=== PATIENT | male | born 1970 | race American Indian/Alaskan Native ===

== ENCOUNTER 2018-01-30 17:35 | Observation (INO) | payer OTHER ==
--- NOTE | 2018-01-30 17:51 | ED PDOC ---
Arrival/HPI - General Time Seen by Provider: 01/30/18 17:50 Historian: Patient - History of Present Illness Narrative History of Present Illness (Text): 01/30/18 17:51 47 y/o male, pmh including chronic vertigo on and off since 10/2017, nkda, c/o new onset of elevated blood pressure with dizziness at home today. Pt. stated that he has chronic headache and dizziness for couple months, worsening for the headache and dizziness started today, new onset of elevated high blood pressure has been around 150-160 systolic with diastolic 80-90, feels like passing out with elevated BP, no change in vision, no numbness or tingling, no night sweat, no rash, no change in vision, no other medical or psychological complaints. Past Medical History - Provider Review Nursing Documentation Reviewed: Yes Family/Social History - Physician Review Nursing Documentation Reviewed: Yes Family/Social History: Unknown Family HX Allergies/Home Meds Allergies/Adverse Reactions: Allergies No Known Allergies Allergy (Verified 01/30/18 18:00) Home Medications: Home Meds Medication Instructions Recorded Confirmed No Known Home Med 01/30/18 01/30/18 Review of Systems - Review of Systems Constitutional: absent: Fatigue, Fevers Eyes: absent: Vision Changes ENT: absent: Hearing Changes Respiratory: absent: SOB, Cough Cardiovascular: absent: Chest Pain Gastrointestinal: absent: Abdominal Pain, Nausea, Vomiting Skin: absent: Rash, Pruritis Neurological: Headache, Dizziness Psychiatric: absent: Anxiety, Depression Physical Exam Vital Signs Reviewed: Yes Vital Signs Temp Pulse Pulse Resp BP BP Pulse Ox 01/30/18 21:00 60 18 168/94 H 01/30/18 19:49 60 168/94 H 01/30/18 18:31 60 166/104 H 01/30/18 17:55 98.7 F 62 16 163/95 H 100 Temperature: Afebrile Blood Pressure: Hypertensive Pulse: Regular Respiratory Rate: Normal Appearance: Positive for: Well-Appearing, Non-Toxic, Comfortable Pain Distress: None Mental Status: Positive for: Alert and Oriented X 3 - Systems Exam Head: Present: Atraumatic, Normocephalic. No: Tenderness Pupils: Present: PERRL Extroacular Muscles: Present: EOMI Conjunctiva: Present: Normal Mouth: Present: Moist Mucous Membranes Neck: Present: Normal Range of Motion Respiratory/Chest: Present: Clear to Auscultation, Good Air Exchange. No: Respiratory Distress, Accessory Muscle Use Cardiovascular: Present: Regular Rate and Rhythm, Normal S1, S2. No: Murmurs Abdomen: No: Tenderness, Distention, Peritoneal Signs, Rebound, Guarding Back: Present: Normal Inspection Upper Extremity: Present: Normal Inspection. No: Cyanosis, Edema Lower Extremity: Present: Normal Inspection. No: Edema Neurological: Present: GCS=15, CN II-XII Intact, Speech Normal, Motor Func Grossly Intact, Gait Normal, Memory Normal Skin: Present: Warm, Dry, Normal Color. No: Rashes Psychiatric: Present: Alert, Oriented x 3, Normal Insight, Normal Concentration Medical Decision Making ED Course and Treatment: 01/30/18 18:07 -labs -cxr -CT head -ekg -Aspirin 325mg after negative CT head/clonidine 0.1mg po -repeat BP and reassess 01/30/18 19:30 -NIHSS is zero -EKG: Sinus Bradycardia @ 58 BPM, non-specific ST wave changes noted on the lead II/III?aVF/V3/V4, Delta Wave noted on the V3 and V4. -CT Head: No definite acute intracranial abnormality. -Chest xray show no active disease -Labs are non-significant -Troponin 1st set is negative at this time. -I discussed with the patient and family about the abnormality of the EKG with no previous comparison, advised 24 hours observation, they agreed to be admitted for over night observation. -Case/labs/radiology result discussed with Dr. Manzo, he agreed this patient will need observation overnight with possible equalizer operator consult tomorrow. He will put in the admission order. -Hospitalist/medical residence paged for admission 01/30/18 19:45 -I spoke to Dr. Aida Beverly, night house doctor on line csr, discussed about the case/ labs/radiology result, will observe the patient over night. - Lab Interpretations Lab Results: 01/30/18 18:06 01/30/18 18:06 Lab Results 01/30/18 18:06: WBC 6.0, RBC 4.71, Hgb 14.4, Hct 40.3 L, MCV 85.6, MCH 30.6, MCHC 35.7, RDW 13.0, Plt Count 275, MPV 8.9, Gran % 33.5 L, Lymph % (Auto) 56.0 H, Hoke % (Auto) 7.1 H, Eos % (Auto) 3.1, Baso % (Auto) 0.3, Gran # 2.02, Lymph # (Auto) 3.4, Hoke # (Auto) 0.4, Eos # (Auto) 0.2, Baso # (Auto) 0.02 01/30/18 18:06: Sodium 140, Potassium 4.2, Chloride 102, Carbon Dioxide 30, Anion Gap 13, BUN 13, Creatinine 1.2, Est GFR ( Amer) > 60, Est GFR (Non- Af Amer) > 60, Random Glucose 86, Calcium 9.3, Magnesium 1.9, Total Bilirubin 0.6, AST 45, ALT 32, Alkaline Phosphatase 51, Lactate Dehydrogenase 475, Total Creatine Kinase 399 H, CK-MB (CK-2) 5.2 H, CK-MB (CK-2) % 1.3 L, Troponin I < 0.01, Total Protein 7.8, Albumin 3.8, Globulin 3.9, Albumin/Globulin Ratio 1.0 L I have reviewed the lab results: Yes - RAD Interpretation Radiology Orders: 01/30/18 18:25 HEAD W/O CONTRAST [CT] Stat CHEST PORTABLE [RAD] Stat Chest xray: CT head: Brain: Minimal atrophy. No intracranial hemorrhage. No mass. No definite edema. Ventricles: No hydrocephalus. Bones/joints: No acute fracture. Soft tissues: Unremarkable. Sinuses: Scattered minimal mucosal thickening. Mastoid air cells: No mastoid effusion. Orbits: Unremarkable as visualized. IMPRESSION: 1. No definite acute intracranial abnormality. 2. Incidental/non-acute findings are described above. Thank you for allowing us to participate in the care of your patient. Dictated and Authenticated by: Jhonatan Gomez MD 01/30/2018 8:07 PM Eastern Time ([place] & [place]) Grinding Machine Operator Automatic: Radiologist - EKG Interpretation EKG Interpretation (Text): 01/30/18 18:46 EKG: Sinus Bradycardia @ 58 BPM, non-specific ST wave changes noted on the lead II/III?aVF/V3/V4, Delta Wave noted on the V3 and V4. Interpreted by ED Physician: Yes Type: 12 lead EKG Comparison: No previous EKG avail. - Medication Orders Current Medication Orders: Famotidine (Pepcid) 40 mg PO HS BAYRON Hydralazine HCl (Apresoline) 10 mg PO Q6H PRN PRN Reason: Systolic Blood Pressure Sodium Chloride (Sodium Chloride 0.9%) 1,000 mls @ 70 mls/hr IV .[id number] BAYRON Last Admin: 01/30/18 19:50 Dose: 70 mls/hr eMAR Start Stop Document 01/30/18 19:50 VILMA (Rec: 01/30/18 19:51 VILMA [id number]) Intravenous Solution Start Date 01/30/18 Start Time 19:50 Discontinued Medications Aspirin (Aspirin) 325 mg PO STAT STA Stop: 01/30/18 19:25 Last Admin: 01/30/18 20:24 Dose: Clonidine HCl (Catapres) 0.1 mg PO STAT STA Stop: 01/30/18 19:31 Last Admin: 01/30/18 19:49 Dose: 0.1 mg MAR Pulse and Blood Pressure Document 01/30/18 19:49 VILMA (Rec: 01/30/18 19:50 VILMA [id number]) Pulse Pulse Rate (60-90) 60 Blood Pressure Blood Pressure (100/60-150/90) 168/94 Meclizine HCl (Antivert) 50 mg PO STAT STA Stop: 01/30/18 19:25 Last Admin: 01/30/18 19:49 Dose: 50 mg - PA / SUPERVISING BROKER / Resident Statement MD/DO has reviewed & agrees with the documentation as recorded. Disposition/Present on Arrival - Present on Arrival Any Indicators Present on Arrival: No History of DVT/PE: No History of Uncontrolled Diabetes: No Urinary Catheter: No History of Decub. Ulcer: No - Disposition Have Diagnosis and Disposition been Completed?: Yes Diagnosis: Abnormal electrocardiogram [ECG] [EKG], Dizziness, Syncope, near Disposition: HOSPITALIZED Disposition Time: 18:07 Patient Plan: Admission, Observation, Telemetry Patient Problems: Current Active Problems Problem Status Onset Abnormal electrocardiogram [ECG] [EKG] Acute Dizziness Acute Syncope, near Acute Condition: STABLE
[2018-01-30 18:33] LABS: BASO # 0.02 K/mm3 (0.0-2.0); BASO % 0.3 % (0.0-3.0); EOS # 0.2 (0.0-0.7); EOS % 3.1 % (1.5-5.0); GRAN # 2.02 (1.4-6.5); GRAN % 33.5 % (50.0-68.0); HEMOGLOBIN 14.4 g/dL (14.0-18.0); LYMPH # 3.4 (1.2-3.4); MEAN CELL VOLUME 85.6 fl (80.0-105.0); MEAN CORPUSCULAR HEMOGLOBIN 30.6 pg (25.0-35.0); MEAN CORPUSCULAR HGB CONC 35.7 g/dl (31.0-37.0); MEAN PLATELET VOLUME 8.9 fl (7.0-11.0); MONO # 0.4 (0.1-0.6); MONO % 7.1 % (1.0-6.0); RBC 4.71 10^6/uL (3.5-6.1)
[2018-01-30 18:48] LABS: CALCIUM 9.3 mg/dL (8.4-10.5); GFR AFRICAN-AMERICAN > 60; GFR NON-AFRICAN AMERICAN > 60
[2018-01-30 18:53] LABS: ALBUMIN 3.8 g/dL (3.0-4.8); ALT/SGPT 32 U/L (7-56); AST/SGOT 45 U/L (17-59); BLOOD UREA NITROGEN 13 mg/dL (7-21)
[2018-01-30 19:04] LABS: CK MB% 1.3 % (2.5-3.0); CK-MB 5.2 ng/mL (0.0-3.6)
[2018-01-30 19:05] LABS: TROPONIN I < 0.01 ng/mL
[2018-01-30] MEDS: Sodium Chloride 0.9% 1,000 ML IV SCH (19:50)
--- NOTE | 2018-01-30 20:07 | CT ---
EXAM: CT Head Without Intravenous Contrast CLINICAL HISTORY: 47 years old, male; Signs and symptoms; Dizziness and other: Headache; Additional info: Headache/dizziness TECHNIQUE: Axial computed tomography images of the head/brain without intravenous contrast. All CT scans at this facility use one or more dose reduction techniques, viz.: automated exposure control; ma/kV adjustment per patient size (including targeted exams where dose is matched to indication; i.e. head); or iterative reconstruction technique. Coronal and sagittal reformatted images were created and reviewed. COMPARISON: No relevant prior studies available. FINDINGS: Brain: Minimal atrophy. No intracranial hemorrhage. No mass. No definite edema. Ventricles: No hydrocephalus. Bones/joints: No acute fracture. Soft tissues: Unremarkable. Sinuses: Scattered minimal mucosal thickening. Mastoid air cells: No mastoid effusion. Orbits: Unremarkable as visualized. IMPRESSION: 1. No definite acute intracranial abnormality. 2. Incidental/non-acute findings are described above.
[2018-01-30 21:06] VITALS: BMI 23.7
--- NOTE | 2018-01-30 21:29 | CP.PCM.HP ---
<Cassie Hatfield - Last Filed: 01/30/18 20:51> History of Present Illness - History of Present Illness History of Present Illness: Cassie Hatfield, PGY1, H&P for Dr Beverly: CC: lightheadedness 47 year old male with no PMH, presents for lightheadedness for past few months. [place] recently came [place] from [facility] a day ago. Pt states that he was feeling lightheaded this morning, and his sister in law took his BP at home, which was 158/88. She was concerned about pt having a stroke and brought the pt to ED. Pt denies fever, chills, slurred speech, focal neurologic deficits, dizziness, vision changes, numbness/tingling, rash, weakness, facial droop, cp, sob, diaphoresis, nausea, vomiting, abdominal pain, diarrhea, constipation, urinary symptoms, drug use, leg swelling. Pt states that he does not really have a PMD in [facility], but denies any medical conditions. Pt states that he has been having lightheadedness for past few months, lasting 5-10 minutes at a time, he attributes it to his poor PO intake. In ED, BP elevated trop negx1. CT head, CXR neg. Given clonidine 0.1mg po. 12 point ROS obtained and negative, except as per HPI. PMH: denies PSH: denies All: NKA FH: Mother, DM SH: Lives with sister in law in [place] originally from [facility], came to [place] a day ago. Social ETOH drinker, rum, coke, beers. Denies tobacco/drug use. Present on Admission - Present on Admission Any Indicators Present on Admission: No History of DVT/PE: No History of Uncontrolled Diabetes: No Urinary Catheter: No Decubitus Ulcer Present: No Review of Systems - Review of Systems All systems: reviewed and no additional remarkable complaints except Review of Systems: as per HPI Past Patient History - Infectious Disease Hx of Infectious Diseases: None - Past Social History Smoking Status: Unknown If Ever Smoked - CARDIAC Hx Cardiac Disorders: No - PULMONARY Hx Respiratory Disorders: No - NEUROLOGICAL Hx Neurological Disorder: No - HEENT Hx HEENT Problems: No - ENDOCRINE/METABOLIC Hx Endocrine Disorders: No - PSYCHIATRIC Hx Substance Use: No - ANESTHESIA Hx Anesthesia: No Meds Allergies/Adverse Reactions: Allergies Allergy/AdvReac Type Severity Reaction Status Date / Time banana AdvReac Mild VOMITING Uncoded 01/30/18 22:20 Physical Exam - Constitutional Appears: Non-toxic, No Acute Distress - Head Exam Head Exam: ATRAUMATIC, NORMOCEPHALIC Additional comments: neg misty hallpike maneuver - Eye Exam Eye Exam: EOMI, PERRL. absent: Conjunctival injection, Nystagmus, Scleral icterus Pupil Exam: NORMAL ACCOMODATION, PERRL. absent: Miosis, Mydriatic, Unequal - ENT Exam ENT Exam: Mucous Membranes Moist - Neck Exam Neck exam: Positive for: Full Rom - Respiratory Exam Respiratory Exam: Clear to Auscultation Bilateral, NORMAL BREATHING PATTERN. absent: Accessory Muscle Use, Rhonchi, Wheezes, Stridor - Cardiovascular Exam Cardiovascular Exam: RRR, +S1, +S2. absent: Systolic Murmur - GI/Abdominal Exam GI & Abdominal Exam: Normal Bowel Sounds, Soft. absent: Distended, Firm, Guarding, Mass, Organomegaly, Rigid, Tenderness - Extremities Exam Extremities exam: Positive for: normal inspection. Negative for: calf tenderness, pedal edema - Back Exam Back exam: NORMAL INSPECTION. absent: CVA tenderness (L), CVA tenderness (R) - Neurological Exam Neurological exam: Alert, CN II-XII Intact, Normal Gait, Oriented x3, Reflexes Normal - Expanded Neurological Exam Expanded Patient oriented to: person, place Cranial nerves: EOM's Intact: Normal, Facial Palsey w/Forehead Movement: Normal , Facial Palsey w/o Forehead Movement: Normal, Facial Sensation: Normal, Gag Reflex: Normal, Nystagmus: Normal, Tongue Deviation: Normal Ataxia: No Cerebellar Function: Finger to Nose: Normal, Heel to Guerra: Normal Upper motor neuron: Babinski Sign: Normal, Pronator Drift: Normal Sensory exam: Lower Extremity Light Touch: Normal, Upper Extremity Light Touch: Normal Neuro motor strength exam: Left Upper Extremity: 5, Right Upper Extremity: 5, Left Lower Extremity: 5, Right Lower Extremity: 5 DTR: Achilles Tendon Left: 2+, Achilles Tendon Right: 2+, Bicep Left: 2+, Bicep Right: 2+, Patellar Left: 2+, Patellar Right: 2+ Coma Scale Eye Opening: SPONTANEOUS Coma Scale Motor Response: OBEYS COMMANDS Coma Scale Verbal: Oriented Coma Scale Total: 15 - Psychiatric Exam Psychiatric exam: Normal Affect, Normal Mood - Skin Skin Exam: Normal Color, Warm Results - Vital Signs Recent Vital Signs: Last Vital Signs Temp 98.7 F 01/30/18 17:55 Pulse 60 01/30/18 19:49 Resp 16 01/30/18 17:55 BP 168/94 H 01/30/18 19:49 Pulse Ox 100 01/30/18 17:55 - Labs Result Diagrams: 01/30/18 18:06 01/30/18 18:06 Assessment & Plan - Assessment and Plan (Free Text) Assessment: 47 year old male with no PMH, presents for lightheadedness and HTN: Lightheadedness: likely due to elevated BP - head CT neg - CXR neg, no cardiomegaly - trop neg x1 - EKG pend official read - Neurochecks q4 - NIHSS 0 - UA, UDS - lipid panel, Hgb A1C, TSH - Hydralazine prn - Recommend outpatient follow up with PMD for adequate management/dx of HTN. PPX: SCDs, Pepcid Diet: HHD Discussed with Dr Aida Beverly. - Date & Time Date: 01/30/18 Time: 21:29 <Fiona Beverly N - Last Filed: 01/31/18 06:44> Results - Vital Signs Recent Vital Signs: Last Vital Signs Temp 98.1 F 01/31/18 00:01 Pulse 55 L 01/31/18 04:48 Resp 18 01/31/18 00:01 BP 140/91 H 01/31/18 00:01 Pulse Ox 99 01/31/18 00:01 - Labs Result Diagrams: 01/30/18 18:06 01/30/18 18:06 Labs: Laboratory Results - last 24 hr 01/31/18 04:08 Urine Opiates Screen Negative Urine Methadone Screen Negative Ur Barbiturates Screen Negative Ur Phencyclidine Scrn Negative Ur Amphetamines Screen Negative U Benzodiazepines Scrn Negative U Oth Cocaine Metabols Negative U Cannabinoids Screen Negative
[2018-01-30 22:07] LABS: HDL CHOLESTEROL 34 mg/dL (29-60)
[2018-01-30 22:18] LABS: LDL CHOLESTEROL 66 mg/dL (0-129)
[2018-01-31 00:26] VITALS: RESP 18
[2018-01-31 04:54] LABS: BARBITURATES, UR NEGATIVE (NEGATIVE); BENZODIAZEPINES, UR NEGATIVE (NEGATIVE); OPIATES, UR NEGATIVE (NEGATIVE); PHENCYCLIDINE, UR NEGATIVE (NEGATIVE)
[2018-01-31 06:37] LABS: BASO # 0.01 K/mm3 (0.0-2.0); BASO % 0.2 % (0.0-3.0); EOS # 0.2 (0.0-0.7); EOS % 3.7 % (1.5-5.0); GRAN # 1.88 (1.4-6.5); GRAN % 34.8 % (50.0-68.0); HEMOGLOBIN 13.5 g/dL (14.0-18.0); LYMPH # 2.9 (1.2-3.4); LYMPH % 53.3 % (22.0-35.0); MEAN CELL VOLUME 85.5 fl (80.0-105.0); MEAN CORPUSCULAR HEMOGLOBIN 29.7 pg (25.0-35.0); MEAN CORPUSCULAR HGB CONC 34.8 g/dl (31.0-37.0); MEAN PLATELET VOLUME 9.1 fl (7.0-11.0); MONO # 0.4 (0.1-0.6); RBC 4.54 10^6/uL (3.5-6.1); WHITE BLOOD COUNT 5.4 10^3/ul (4.5-11.0)
[2018-01-31 06:48] LABS: ALBUMIN 3.5 g/dL (3.0-4.8); ALT/SGPT 33 U/L (7-56); AST/SGOT 36 U/L (17-59); BLOOD UREA NITROGEN 10 mg/dL (7-21); GFR AFRICAN-AMERICAN > 60; GFR NON-AFRICAN AMERICAN > 60
--- NOTE | 2018-01-31 08:20 | RAD ---
HISTORY: medical clearance COMPARISON: No prior. FINDINGS: LUNGS: The lungs are well inflated and clear. PLEURA: No significant pleural effusion identified, no pneumothorax apparent. CARDIOVASCULAR: Normal. OSSEOUS STRUCTURES: No significant abnormalities. VISUALIZED UPPER ABDOMEN: Normal. OTHER FINDINGS: None. IMPRESSION: No active pulmonary disease.
--- NOTE | 2018-01-31 09:06 | CARD ---
APPROVED REPORT EKG Measurement Heart [id number] <Conclusion> Sinus bradycardia with sinus arrhythmia LVH by voltage
[2018-01-31 09:12] VITALS: TEMP 97.7; O2SAT 100
[2018-01-31] MEDS: Sodium Chloride 0.9% 1,000 ML IV SCH (09:27)
--- NOTE | 2018-01-31 11:27 | CP.PCM.DIS ---
<Arlin Kang - Last Filed: 01/31/18 14:15> Provider - Provider Date of Admission: 01/30/18 19:33 Attending physician: Buzz Souza MD Time Spent in preparation of Discharge (in minutes): 31 Hospital Course - Lab Results Lab Results: Most Recent Lab Values WBC 5.4 10^3/ul (4.5-11.0) 01/31/18 05:30 RBC 4.54 10^6/uL (3.5-6.1) 01/31/18 05:30 Hgb 13.5 g/dL (14.0-18.0) L 01/31/18 05:30 Hct 38.8 % (42.0-52.0) L 01/31/18 05:30 MCV 85.5 fl (80.0-105.0) 01/31/18 05:30 MCH 29.7 pg (25.0-35.0) 01/31/18 05:30 MCHC 34.8 g/dl (31.0-37.0) 01/31/18 05:30 RDW 13.0 % (11.5-14.5) 01/31/18 05:30 Plt Count 279 10^3/uL (120.0-450.0) 01/31/18 05:30 MPV 9.1 fl (7.0-11.0) 01/31/18 05:30 Gran % 34.8 % (50.0-68.0) L 01/31/18 05:30 Lymph % (Auto) 53.3 % (22.0-35.0) H 01/31/18 05:30 Wilson % (Auto) 8.0 % (1.0-6.0) H 01/31/18 05:30 Eos % (Auto) 3.7 % (1.5-5.0) 01/31/18 05:30 Baso % (Auto) 0.2 % (0.0-3.0) 01/31/18 05:30 Gran # 1.88 (1.4-6.5) 01/31/18 05:30 Lymph # (Auto) 2.9 (1.2-3.4) 01/31/18 05:30 Wilson # (Auto) 0.4 (0.1-0.6) 01/31/18 05:30 Eos # (Auto) 0.2 (0.0-0.7) 01/31/18 05:30 Baso # (Auto) 0.01 K/mm3 (0.0-2.0) 01/31/18 05:30 Sodium 140 mmol/L (132-148) 01/31/18 05:30 Potassium 3.6 mmol/L (3.6-5.0) 01/31/18 05:30 Chloride 105 mmol/L (98-107) 01/31/18 05:30 Carbon Dioxide 26 mmol/L (21-33) 01/31/18 05:30 Anion Gap 13 (10-20) 01/31/18 05:30 BUN 10 mg/dL (7-21) 01/31/18 05:30 Creatinine 0.9 mg/dl (0.8-1.5) 01/31/18 05:30 Est GFR ( Amer) > 60 01/31/18 05:30 Est GFR (Non-Af Amer) > 60 01/31/18 05:30 Random Glucose 89 mg/dL (70-110) 01/31/18 05:30 Calcium 9.0 mg/dL (8.4-10.5) 01/31/18 05:30 Magnesium 1.9 mg/dL (1.7-2.2) 01/30/18 18:06 Total Bilirubin 0.6 mg/dL (0.2-1.3) 01/31/18 05:30 AST 36 U/L (17-59) 01/31/18 05:30 ALT 33 U/L (7-56) 01/31/18 05:30 Alkaline Phosphatase 47 U/L (38-126) 01/31/18 05:30 Lactate Dehydrogenase 475 U/L (333-699) 01/30/18 18:06 Total Creatine Kinase 399 U/L (35-230) H 01/30/18 18:06 CK-MB (CK-2) 5.2 ng/mL (0.0-3.6) H 01/30/18 18:06 CK-MB (CK-2) % 1.3 % (2.5-3.0) L 01/30/18 18:06 Troponin I < 0.01 ng/mL 01/30/18 18:06 Total Protein 7.1 g/dL (5.8-8.3) 01/31/18 05:30 Albumin 3.5 g/dL (3.0-4.8) 01/31/18 05:30 Globulin 3.6 gm/dL 01/31/18 05:30 Albumin/Globulin Ratio 1.0 (1.1-1.8) L 01/31/18 05:30 Triglycerides 163 mg/dL (35-160) H 01/30/18 18:30 Cholesterol 139 mg/dL (130-200) 01/30/18 18:30 LDL Cholesterol Direct 66 mg/dL (0-129) 01/30/18 18:30 HDL Cholesterol 34 mg/dL (29-60) 01/30/18 18:30 TSH 3rd Generation 1.05 mIU/mL (0.46-4.68) 01/30/18 18:30 Urine Opiates Screen Negative (NEGATIVE) 01/31/18 04:08 Urine Methadone Screen Negative (NEGATIVE) 01/31/18 04:08 Ur Barbiturates Screen Negative (NEGATIVE) 01/31/18 04:08 Ur Phencyclidine Scrn Negative (NEGATIVE) 01/31/18 04:08 Ur Amphetamines Screen Negative (NEGATIVE) 01/31/18 04:08 U Benzodiazepines Scrn Negative (NEGATIVE) 01/31/18 04:08 U Oth Cocaine Metabols Negative (NEGATIVE) 01/31/18 04:08 U Cannabinoids Screen Negative (NEGATIVE) 01/31/18 04:08 - Hospital Course Hospital Course: Patient is a 47 year old male with no PMH, presents for lightheadedness for past few months. [place] came [place] [facility] a day ago. Pt states that he was feeling lightheaded this morning, and his sister in law took his BP at home, which was 158/88. She was concerned about pt having a stroke and brought the pt to ED. Pt denies fever, chills, slurred speech, focal neurologic deficits, dizziness, vision changes, numbness/tingling, rash, weakness, facial droop, cp, sob, diaphoresis, nausea, vomiting, abdominal pain, diarrhea, constipation, urinary symptoms, drug use, leg swelling. Pt states that he does not really have a PMD in [facility], but denies any medical conditions. Pt states that he has been having lightheadedness for past few months, lasting 5-10 minutes at a time, he attributes it to his poor PO intake. Patient was admitted to Med/Surg. BP 163/95 on admission. Started on IV fluids. CT head showed no definite acute intracranial abnormality. EKG showed sinus bradycardia with sinus arrythmia. Orthostatics were within normal limits. Triglycerides elevated at 163, hgA1C 5.5. Patient counseled on diet modification and exercise. Patient was started on Lisinopril 5mg PO daily for hypertension. On day of discharge patient was doing well, lightheadedness resolved. Patient ambulated without difficulty. Patient states that his PMD is in [place]. Advised patient to follow up with PMD within 1 week. He is supposed to [place] the [place] on Wednesday. If not, patient was given contact information for [facility] clinic for follow up. Patient also advised that he will need to monitor Renal function with BMPs as we started him on Lisinopril for BP control. Medication sent to pharmacy. Patient is medically stable for discharge home. Discharge Medication Lisinopril 5mg PO daily Discharge Exam - Head Exam Head Exam: ATRAUMATIC, NORMOCEPHALIC - Eye Exam Eye Exam: EOMI, Normal appearance Pupil Exam: NORMAL ACCOMODATION - ENT Exam ENT Exam: Mucous Membranes Moist - Respiratory Exam Respiratory Exam: Clear to PA & Lateral, NORMAL BREATHING PATTERN, UNREMARKABLE. absent: Rhonchi, Wheezes, Respiratory Distress - Cardiovascular Exam Cardiovascular Exam: REGULAR RHYTHM, +S1, +S2 - GI/Abdominal Exam GI & Abdominal Exam: Normal Bowel Sounds, Soft, Unremarkable. absent: Guarding , Rebound, Rigid, Tenderness - Neurological Exam Neurological exam: Alert, Oriented x3 - Psychiatric Exam Psychiatric exam: Normal Affect, Normal Mood - Skin Skin Exam: Dry, Normal Color, Warm Discharge Plan - Discharge Medications Prescriptions: Lisinopril [Zestril] 5 mg PO DAILY #14 tablet - Follow Up Plan Condition: STABLE Disposition: HOME/ ROUTINE Instructions: Syncope (Fainting), High Blood Pressure (DC) Additional Instructions: 1. Please continue Lisinopril 5mg PO daily as prescribed 2. Please check your BPs at home and record the readings 3. Please follow up with [facility] clinic on February 11, 2018 at 9:30 am 4. As we started a new blood pressure medication, will need to monitor BMPs ( renal function) 5. Please do not eat after midnight before appointment for lab work 6. Please fill out [facility] paperwork prior to Appointment 7. If having any worsening symptoms, please go to the nearest Emergency Room Referrals: Imelda Brice Req, [Non-Staff] - Follow up with primary <Buzz Souza - Last Filed: 01/31/18 16:24> Provider - Provider Date of Admission: 01/30/18 19:33 Attending physician: Buzz Souza MD Hospital Course - Lab Results Lab Results: Most Recent Lab Values WBC 5.4 10^3/ul (4.5-11.0) 01/31/18 05:30 RBC 4.54 10^6/uL (3.5-6.1) 01/31/18 05:30 Hgb 13.5 g/dL (14.0-18.0) L 01/31/18 05:30 Hct 38.8 % (42.0-52.0) L 01/31/18 05:30 MCV 85.5 fl (80.0-105.0) 01/31/18 05:30 MCH 29.7 pg (25.0-35.0) 01/31/18 05:30 MCHC 34.8 g/dl (31.0-37.0) 01/31/18 05:30 RDW 13.0 % (11.5-14.5) 01/31/18 05:30 Plt Count 279 10^3/uL (120.0-450.0) 01/31/18 05:30 MPV 9.1 fl (7.0-11.0) 01/31/18 05:30 Gran % 34.8 % (50.0-68.0) L 01/31/18 05:30 Lymph % (Auto) 53.3 % (22.0-35.0) H 01/31/18 05:30 Wilson % (Auto) 8.0 % (1.0-6.0) H 01/31/18 05:30 Eos % (Auto) 3.7 % (1.5-5.0) 01/31/18 05:30 Baso % (Auto) 0.2 % (0.0-3.0) 01/31/18 05:30 Gran # 1.88 (1.4-6.5) 01/31/18 05:30 Lymph # (Auto) 2.9 (1.2-3.4) 01/31/18 05:30 Wilson # (Auto) 0.4 (0.1-0.6) 01/31/18 05:30 Eos # (Auto) 0.2 (0.0-0.7) 01/31/18 05:30 Baso # (Auto) 0.01 K/mm3 (0.0-2.0) 01/31/18 05:30 Sodium 140 mmol/L (132-148) 01/31/18 05:30 Potassium 3.6 mmol/L (3.6-5.0) 01/31/18 05:30 Chloride 105 mmol/L (98-107) 01/31/18 05:30 Carbon Dioxide 26 mmol/L (21-33) 01/31/18 05:30 Anion Gap 13 (10-20) 01/31/18 05:30 BUN 10 mg/dL (7-21) 01/31/18 05:30 Creatinine 0.9 mg/dl (0.8-1.5) 01/31/18 05:30 Est GFR ( Amer) > 60 01/31/18 05:30 Est GFR (Non-Af Amer) > 60 01/31/18 05:30 Random Glucose 89 mg/dL (70-110) 01/31/18 05:30 Hemoglobin A1c 5.5 % (4.2-6.5) 01/30/18 18:30 Calcium 9.0 mg/dL (8.4-10.5) 01/31/18 05:30 Magnesium 1.9 mg/dL (1.7-2.2) 01/30/18 18:06 Total Bilirubin 0.6 mg/dL (0.2-1.3) 01/31/18 05:30 AST 36 U/L (17-59) 01/31/18 05:30 ALT 33 U/L (7-56) 01/31/18 05:30 Alkaline Phosphatase 47 U/L (38-126) 01/31/18 05:30 Lactate Dehydrogenase 475 U/L (333-699) 01/30/18 18:06 Total Creatine Kinase 399 U/L (35-230) H 01/30/18 18:06 CK-MB (CK-2) 5.2 ng/mL (0.0-3.6) H 01/30/18 18:06 CK-MB (CK-2) % 1.3 % (2.5-3.0) L 01/30/18 18:06 Troponin I < 0.01 ng/mL 01/30/18 18:06 Total Protein 7.1 g/dL (5.8-8.3) 01/31/18 05:30 Albumin 3.5 g/dL (3.0-4.8) 01/31/18 05:30 Globulin 3.6 gm/dL 01/31/18 05:30 Albumin/Globulin Ratio 1.0 (1.1-1.8) L 01/31/18 05:30 Triglycerides 163 mg/dL (35-160) H 01/30/18 18:30 Cholesterol 139 mg/dL (130-200) 01/30/18 18:30 LDL Cholesterol Direct 66 mg/dL (0-129) 01/30/18 18:30 HDL Cholesterol 34 mg/dL (29-60) 01/30/18 18:30 TSH 3rd Generation 1.05 mIU/mL (0.46-4.68) 01/30/18 18:30 Urine Opiates Screen Negative (NEGATIVE) 01/31/18 04:08 Urine Methadone Screen Negative (NEGATIVE) 01/31/18 04:08 Ur Barbiturates Screen Negative (NEGATIVE) 01/31/18 04:08 Ur Phencyclidine Scrn Negative (NEGATIVE) 01/31/18 04:08 Ur Amphetamines Screen Negative (NEGATIVE) 01/31/18 04:08 U Benzodiazepines Scrn Negative (NEGATIVE) 01/31/18 04:08 U Oth Cocaine Metabols Negative (NEGATIVE) 01/31/18 04:08 U Cannabinoids Screen Negative (NEGATIVE) 01/31/18 04:08 Attending/Attestation - Attestation I have personally seen and examined this patient.: Yes I have fully participated in the care of the patient.: Yes I have reviewed all pertinent clinical information, including history, physical exam and plan: Yes Notes (Text): 01/31/18 16:21 Medical record note made by the resident after discussion with my direction and input after the patient was personally seen and examined by me. I have reviewed the chart and agree that the record accurately reflects by personal performance of the history, physical exam, data review, and medical decision-making, in the course for the patient. I have also personally directed the plan of care. 47 yrs old male was admitted with dizziness.There is no focal deficit.Patient is ambulatory. Dizziness has improved.Patient dizziness was due to HTN , has been started on low dose of lisinopril. Patient will be discharged home and will follow up with [facility]. Management plan was discussed in detail with patient. Education was provided.
[2018-01-31 15:02] VITALS: BP 139/85; PULSE 65
== END 2018-01-31 15:36 | disposition home or self-care (01) ==
LOC: ED 17:35 → ERH 19:33 → 3RNO 21:05
PROVIDERS: ADMIT Hospitalist; ATTEND Internal Medicine
DX: R42 Dizziness and giddiness (principal); I10 Essential (primary) hypertension; Z83.3 Family history of diabetes mellitus
CPT/HCPCS: 36415; 70450; 71045; 80053; 80061; 80324; 80345; 80346; 80349; 80353; 80358; 80361; 82550; 82553; 83036; 83615; 83735; 83992; 84443; 84484; 85025; 93005; 99285; G0378; J7040